=== PATIENT | female | born 1980 | race Caucasian/White ===

== ENCOUNTER 2016-05-03 09:58 | Emergency (ER) | payer SELFPAY ==
[2016-05-03 11:26] VITALS: BP 138/86
--- NOTE | 2016-05-03 11:44 | UC ---
Lower Extremity/Ankle HPI - HPI Summary HPI Summary: complaint of getting a piece of glass in her left foot this morning son broke liliam chair in the kitchen and she had it on her right heel brushed her foot against top of left foot and feels that glass lodged in her foot foot has been swollen and painful since hasn't taken medication for pain - History of Current Complaint Chief Complaint: UCLowerExtremity Stated Complaint: POSSIBLE GLASS IN FOOT Time Seen by Provider: 05/03/16 11:36 Hx Obtained From: Patient Hx Last Menstrual Period: 04/13/16 - Allergies/Home Medications Allergies/Adverse Reactions: Allergies Allergy/AdvReac Type Severity Reaction Status Date / Time Adhesive Tape [Plastic Tape] Allergy Intermediate Hives Verified 05/03/16 10:11 Home Medications: Home Medications Escitalopram Oxalate [Lexapro] 1 DAILY 05/03/16 [History] PMH/Surg Hx/FS Hx/Imm Hx Previously Healthy: Yes Endocrine History Of: Denies: Diabetes Cardiovascular History Of: Denies: Hypertension, Congestive Heart Failure Respiratory History Of: Reports: Asthma GI/ History Of: Denies: Renal Disease Neurological History Of: Reports: Migraine - Surgical History Surgical History: Yes Surgery Procedure, Year, and Place: CHOLECYSTECTOMY 2006. LEFT ANKLE. RT INDEX FINGER. TONSILS - Family History Known Family History: Negative: Cardiac Disease, Hypertension, Diabetes - Social History Occupation: Student Lives: With Family Alcohol Use: Occasionally Substance Use Type: None Smoking Status (MU): Never Smoked Tobacco Review of Systems Constitutional: Negative Skin: Other - laceration Eyes: Negative ENT: Negative Respiratory: Negative Cardiovascular: Negative Gastrointestinal: Negative Genitourinary: Negative Motor: Negative Neurovascular: Negative Musculoskeletal: Negative Neurological: Negative Psychological: Negative All Other Systems Reviewed And Are Negative: Yes Physical Exam Triage Information Reviewed: Yes Appearance: No Pain Distress, Well-Nourished Vital Signs: Initial Vital Signs Temp 99.0 F 05/03/16 10:06 Pulse 88 05/03/16 10:06 Resp 20 05/03/16 10:06 BP 138/86 05/03/16 10:06 Pulse Ox 100 05/03/16 10:06 Vital Signs Reviewed: Yes Eyes: Positive: Conjunctiva Clear ENT: Positive: Pharynx normal. Negative: Nasal congestion Neck: Positive: Supple Respiratory: Positive: Lungs clear, Normal breath sounds, No respiratory distress Cardiovascular: Positive: RRR, No Murmur, Pulses Normal Abdomen Description: Positive: Nontender, Soft Bowel Sounds: Positive: Present Musculoskeletal: Positive: No Edema Neurological: Positive: Alert Psychological Exam: Normal Skin: Positive: Other - left foot -dorsal side small 5mm laceration unable to remove glass with splinter forceps Procedures - Procedure Summary Procedure Summary: unable to remove glass with splinter forceps Lower Extremity Course/Dx - Course Course Of Treatment: exam completed. x-ray shows foreign object in left foot. pt refuses to have it removed in urgent care will refer to [facility] for further evaluation - Differential Dx/Diagnosis Differential Diagnosis/HQI/PQRI: Foreign Body Provider Diagnoses: foreign body in left foot Discharge - Discharge Plan Condition: Stable Disposition: HOME Patient Education Materials: Soft Tissue Foreign Body (ED) Referrals: Steve Kerr MD [Primary Care Provider] - Malick Link MD [Medical Doctor] - Additional Instructions: Take acetaminophen or ibuprofen for fever or pain Please review your discharge instructions. please call Dr Link for further evaluation and removal of foreign body
[2016-05-03] MEDS ORDERED: Ibuprofen TAB* 400 MG PO ONE (12:14)
--- NOTE | 2016-05-03 12:46 | RAD ---
Indication: Possible glass foreign body in the top of the LEFT foot. Comparison: July 26, 2005 Technique: AP and lateral views LEFT foot. Report: Moderately radiopaque 1.5 cm maximum dimension foreign body within the soft tissues of the dorsum of the forefoot at the level of the proximal space between the bases of the first and second metatarsals. Based on morphology taking the clinical history and overlying skin marker indicating the site of concern into account the foreign body is consistent with a shard of glass. No additional conspicuous foreign bodies. Negative for subcutaneous emphysema. Unremarkable articular alignment. Negative for fracture. Small Achilles tendon insertion heel spur. Soft tissue swelling over the dorsum of the forefoot. IMPRESSION: Retained foreign body subjacent to the dorsal skin marker indicating the site of clinical concern.
== END 2016-05-03 13:17 | disposition home or self-care (01) ==
LOC: UCEAST 09:58
DX: S90.852A Superficial foreign body, left foot, initial encounter (principal); W45.8XXA Other foreign body or object entering through skin, initial encounter; W25.XXXA Contact with sharp glass, initial encounter; Y93.89 Activity, other specified; Y92.9 Unspecified place or not applicable; Z90.49 Acquired absence of other specified parts of digestive tract
CPT/HCPCS: 99211; A9270-GY; G0463

== ENCOUNTER 2016-06-18 13:48 | Emergency (ER) | payer BC ==
--- NOTE | 2016-06-18 14:14 | ED ---
Head Injury - History Of Current Complaint Chief Complaint: EDHeadInjury Stated Complaint: HEAD PAIN Time Seen by Provider: 06/18/16 14:02 Hx Last Menstrual Period: 04/13/16 Pain Intensity: 8 - Allergies/Home Medications Allergies/Adverse Reactions: Allergies Allergy/AdvReac Type Severity Reaction Status Date / Time Adhesive Tape [Plastic Tape] Allergy Intermediate Hives Verified 05/03/16 10:11 PMH/Surg Hx/FS Hx/Imm Hx Endocrine/Hematology History: Denies: Hx Diabetes, Hx Systemic Lupus Erythematosus Cardiovascular History: Denies: Hx Congestive Heart Failure, Hx Hypertension Respiratory History: Reports: Hx Asthma GI History: Denies: Other GI Disorders - DENIES History: Reports: Other Problems/Disorders - POLYCYSTIC OVARIES Denies: Hx Dialysis, Hx Renal Disease Musculoskeletal History: Denies: Hx Rheumatoid Arthritis Neurological History: Reports: Hx Migraine - Cancer History Hx Chemotherapy: No - Surgical History Surgery Procedure, Year, and Place: CHOLECYSTECTOMY 2005. LEFT ANKLE. RT INDEX FINGER. TONSILS Infectious Disease History: Reports: Hx of Known/Suspected MRSA - leg and groin from a tanning bed Denies: Traveled Outside the [place] in Last 30 Days - Family History Known Family History: Negative: Cardiac Disease, Hypertension, Diabetes - Social History Alcohol Use: Occasionally Substance Use Type: Reports: None Smoking Status (MU): Never Smoked Tobacco Physical Exam Vital Signs On Initial Exam: Initial Vitals Temp Pulse Resp BP Pulse Ox 97.4 F 85 16 122/66 98 06/18/16 13:56 06/18/16 13:56 06/18/16 13:56 06/18/16 13:56 06/18/16 13:56 Diagnostics - Vital Signs Vital Signs Temp Pulse Resp BP Pulse Ox 06/18/16 13:56 97.4 F 85 16 122/66 98 - Laboratory Lab Statement: Any lab studies that have been ordered have been reviewed, and results considered in the medical decision making process. Head Injury Course/Dx - Diagnoses Differential Diagnosis/HQI/PQRI: Cerebral Contusion, Concussion Without LOC, Contusion, Hematoma, Other Provider Diagnoses: Concussion without loss of consciousness Discharge - Discharge Plan Condition: Stable Disposition: HOME Patient Education Materials: Concussion (ED), Post Concussion Syndrome (ED) Referrals: Steve Kerr MD [Primary Care Provider] - Additional Instructions: Take prescribed antiemetic as needed for nausea as needed. Take ibuprofen for headache as needed, as directed. Rest and drinking fluids is the best treatment for a concussion. Refrain from physical activity until cleared by primary care provider. Avoid high stimulating activities such as cellphones, computers and television. Take breaks during high concentration. If new symptoms develop or symptoms worsen please return to ED. Follow up with your primary care provider so this can be further evaluated.
[2016-06-18] MEDS ORDERED: Ketorolac INJ* 60 MG/2 ML VIAL IM ONE (15:04)
[2016-06-18] MEDS ORDERED: Ondansetron ODT TAB* 4 MG PO ONE (15:08)
--- NOTE | 2016-06-18 15:44 | RAD ---
HISTORY: Head trauma COMPARISONS: July 29, 2007 TECHNIQUE: Multiple contiguous axial CT scans were obtained of the head without intravenous contrast. FINDINGS: HEMORRHAGE/INFARCT: There is no hemorrhage or acute infarct. MASSES/SHIFT: There is no mass or shift. EXTRA-AXIAL SPACES: There are no extra-axial fluid collections. SULCI AND VENTRICLES: The sulci and ventricles are normal in size and position for the patient's stated age. CEREBRUM: There are no focal parenchymal abnormalities. BRAINSTEM: There are no focal parenchymal abnormalities. CEREBELLUM: There are no focal parenchymal abnormalities. VESSELS: The vessels are grossly normal. PARANASAL SINUSES: The paranasal sinuses are clear. ORBITS: The orbits are unremarkable. BONES AND SOFT TISSUE: No bone or soft tissue abnormalities are noted. OTHER: None IMPRESSION: NO ACUTE INTRACRANIAL PATHOLOGY.
[2016-06-18 16:29] VITALS: BP 136/71
== END 2016-06-18 16:28 | disposition home or self-care (01) ==
LOC: ED 13:48
DX: S06.0X0A Concussion without loss of consciousness, initial encounter (principal); X58.XXXA Exposure to other specified factors, initial encounter
CPT/HCPCS: 70450; 96374; 99282; J1885

== ENCOUNTER 2017-06-21 20:14 | Emergency (ER) | payer OTHER ==
--- NOTE | 2017-06-21 21:05 | RAD ---
Indication: Left foot pain. 3 views left foot demonstrates no fracture. No other bone or joint abnormality is noted. IMPRESSION: No fracture of the left foot is noted.
--- NOTE | 2017-06-21 21:14 | ED ---
Lower Extremity - HPI Summary HPI Summary: 36-year-old female presents with left foot pain for the past 4 days. She states she's been standing alot more at work. 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 She states that the pain is located to the lateral aspect of her midfoot. She states her pain is constant. Does not change with walking. Does not get better as she walks. She has been using ibuprofen without relief. No erythema. No history of gout. no numbness or tingling. No injury to the area. Pain is worse when the area is touched. - History of Current Complaint Hx Last Menstrual Period: 05/11/16, currently on menstrual cycle, (-) @ home preg 5 days ago Pain Intensity: 6 <Alie Marrufo - Last Filed: 06/21/17 21:56> <Reilly Sullivan - Last Filed: 06/22/17 00:32> - History of Current Complaint Chief Complaint: EDExtremityLower Stated Complaint: LT FOOT/LEG PAIN Time Seen by Provider: 06/21/17 20:33 - Allergies/Home Medications Allergies/Adverse Reactions: Allergies Allergy/AdvReac Type Severity Reaction Status Date / Time Adhesive Tape [Plastic Tape] Allergy Intermediate Hives Verified 05/03/16 10:11 egg Allergy Hives/Diff. Verified 06/21/17 20:19 Breathing/I tching PMH/Surg Hx/FS Hx/Imm Hx Endocrine/Hematology History: Denies: Hx Diabetes, Hx Systemic Lupus Erythematosus Cardiovascular History: Denies: Hx Congestive Heart Failure, Hx Hypertension, Hx Pacemaker/ICD Respiratory History: Reports: Hx Asthma GI History: Denies: Other GI Disorders - DENIES History: Reports: Other Problems/Disorders - POLYCYSTIC OVARIES Denies: Hx Dialysis, Hx Renal Disease Musculoskeletal History: Denies: Hx Rheumatoid Arthritis Sensory History: Denies: Hx Hearing Aid Neurological History: Reports: Hx Migraine Psychiatric History: Denies: Hx Panic Disorder - Cancer History Hx Chemotherapy: No - Surgical History Surgery Procedure, Year, and Place: CHOLECYSTECTOMY 2005. LEFT ANKLE SCRAPED BONE. RT INDEX FINGER METAL PLATE/PINS. TONSILS Infectious Disease History: No Infectious Disease History: Reports: Hx of Known/Suspected MRSA - leg and groin from a tanning bed Denies: Traveled Outside the [place] in Last 30 Days - Family History Known Family History: Negative: Cardiac Disease, Hypertension, Diabetes - Social History Alcohol Use: Occasionally Substance Use Type: Reports: None Smoking Status (MU): Never Smoked Tobacco <ClaudiamirzaAlie - Last Filed: 06/21/17 21:56> Review of Systems Negative: Fever Negative: Chest Pain Negative: Shortness Of Breath Positive: Myalgia - left foot pain All Other Systems Reviewed And Are Negative: Yes <ClaudiamirzaAlie - Last Filed: 06/21/17 21:56> Physical Exam Triage Information Reviewed: Yes Vital Signs On Initial Exam: Initial Vitals Temp Pulse Resp BP Pulse Ox 98.1 F 78 16 150/93 99 06/21/17 20:16 06/21/17 20:16 06/21/17 20:16 06/21/17 20:16 06/21/17 20:16 Vital Signs Reviewed: Yes Appearance: Positive: Well-Appearing Skin: Positive: Warm, Dry Head/Face: Positive: Normal Head/Face Inspection Eyes: Positive: Normal, Conjunctiva Clear Respiratory/Lung Sounds: Positive: Clear to Auscultation, Breath Sounds Present Cardiovascular: Positive: Normal, RRR Musculoskeletal: Positive: Limited @ - left foot, Edema Left - minimally edema, Other - tenderness over lateral midfoot, good pulses, sensation grossly intact, able to wiggle toes, no erythema Neurological: Positive: Normal <ClaudiamirzaAlie - Last Filed: 06/21/17 21:56> Vital Signs On Initial Exam: Initial Vitals Temp Pulse Resp BP Pulse Ox 98.1 F 78 16 150/93 99 06/21/17 20:16 06/21/17 20:16 06/21/17 20:16 06/21/17 20:16 06/21/17 20:16 <Reilly Sullivan - Last Filed: 06/22/17 00:32> Diagnostics - Vital Signs Vital Signs Temp Pulse Resp BP Pulse Ox 06/21/17 20:16 98.1 F 78 16 150/93 99 - Radiology foot Xray Interpretation: No Acute Changes Radiology Interpretation Completed By: Radiologist <Alie Marrufo - Last Filed: 06/21/17 21:56> - Vital Signs Vital Signs Temp Pulse Resp BP Pulse Ox 06/21/17 21:40 98 F 71 18 143/85 98 06/21/17 20:16 98.1 F 78 16 150/93 99 <Reilly Sullivan - Last Filed: 06/22/17 00:32> Lower Extremity Course/Dx - Course Course Of Treatment: 36-year-old female presents with left foot pain for the past 4 days. She states she's been standing alot more at work. 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 She states that the pain is located to the lateral aspect of her midfoot. She states her pain is constant. Does not change with walking. Does not get better as she walks. She has been using ibuprofen without relief. No erythema. No history of gout. no numbness or tingling. No injury to the area. Pain is worse when the area is touched. On exam tenderness over left lateral foot. Some edema present. Neurovascular intact. X-ray normal. in course of conversation patient states that she does not get along with me and is requesting another opinion. spoke with dr sullivan who saw patient. dr sullivan states pain seems mostly soft tissue. advised to treat with RICE. patient understand and agrees with plan. - Diagnoses Differential Diagnosis/HQI/PQRI: Positive: Fracture (Closed), Sprain, Strain <Alie Marrufo - Last Filed: 06/21/17 21:56> - Course Course Of Treatment: I supervised the care of the physician medical research assistant and I performed a history and physical on this patient. History: No definite trauma with complaint of discomfort in the lateral midfoot of the left ankle. Physical exam: Feet are extremely dirty. There is no significant swelling or redness in the area of discomfort. There is mild tenderness in the area of the anterior talofibular ligament. No ankle joint effusion. Plan: Rest, ice, compression and elevation as well as NSAID. Follow-up primary care physician. <Reilly Sullivan - Last Filed: 06/22/17 00:32> - Diagnoses Provider Diagnoses: Left foot pain Discharge - Sign-Out/Discharge Documenting (check all that apply): Discharge/Admit/Transfer - Billing Disposition and Condition Condition: GOOD Disposition: HOME <Alie Marrufo - Last Filed: 06/21/17 21:56> - Billing Disposition and Condition Condition: GOOD Disposition: HOME <Reilly Sullivan - Last Filed: 06/22/17 00:32> - Discharge Plan Condition: Good Disposition: HOME Patient Education Materials: R.I.C.E. Treatment (ED) Referrals: Steve Kerr MD [Primary Care Provider] - Additional Instructions: Follow up with primary Take ibuprofen every 6 hours for pain Wear supportive shoes or devorah wrap Apply ice, rest, elevate Return to ED if develop any new or worsening symptoms
[2017-06-21 21:41] VITALS: BP 143/85
== END 2017-06-21 21:40 | disposition home or self-care (01) ==
LOC: ED 20:14
DX: M79.672 Pain in left foot (principal); J45.909 Unspecified asthma, uncomplicated; E28.2 Polycystic ovarian syndrome; G43.909 Migraine, unspecified, not intractable, without status migrainosus; Z90.49 Acquired absence of other specified parts of digestive tract
CPT/HCPCS: 99282

== ENCOUNTER 2017-08-02 07:45 | Emergency (ER) | payer OTHER ==
[2017-08-02 08:31] LABS: ABS Basophils 0.1 10^3/ul (0-0.2); ABS Eosinophils 0.3 10^3/ul (0-0.6); ABS Lymphocytes 1.8 10^3/ul (1.0-4.8); ABS Monocytes 0.5 10^3/ul (0-0.8); ABS Neutrophils 7.1 10^3/ul (1.5-7.7); ABS Nucleated RBC 0 10^3/ul; Eosinophil % 2.8 % (0-6); Hematocrit 44 % (35-47); Hemoglobin 14.6 g/dl (12.0-16.0); Lymphocyte % 18.8 % (25-47); Mean Corpuscular HGB Conc 34 g/dl (31-36); Mean Corpuscular Hemoglobin 28 pg (27-31); Mean Corpuscular Volume 83 fL (80-97); Mean Platelet Volume 8.2 um3 (7.4-10.4); Nucleated Red Blood Cells % 0.1; Platelet Count 248 10^3/ul (150-450); Red Blood Count 5.22 10^6/ul (4.0-5.4); Red Cell Distribution Width 16 % (10.5-15); White Blood Count 9.7 10^3/ul (3.5-10.8)
[2017-08-02 08:37] LABS: Urine Appearance Clear; Urine Blood 1+ (Negative); Urine Color Yellow; Urine Ketones Negative (Negative); Urine Protein Negative (Negative); Urine Urobilinogen Negative (Negative)
[2017-08-02 08:59] LABS: EGFR Non-African American 67.4 (>60)
--- NOTE | 2017-08-02 10:04 | RAD ---
Indication: Bilateral pelvic pain. Comparison: June 28, 2017 Technique: Transabdominal and transvaginal technique pelvic ultrasound Report: 10.0 x 5.4 x 6.1 cm anteverted uterus is negative for myometrial lesions. 12.1 mm endometrium. 1.3 x 0.7 x 1.1 cm spindle-shaped hypoechoic lesion within the endometrial cavity without compelling intrinsic vascularity on Doppler. This lesion appears increased in size over the recent prior exam. Nabothian cysts at the cervix. Negative for free pelvic fluid. Unremarkable 4.1 x 1.7 x 2.5 cm RIGHT ovary and 3.2 x 2.3 x 2.4 cm LEFT ovary with vascular flow documented at both ovaries. No extra ovarian adnexal region lesions evident. IMPRESSION: 1.3 x 0.7 x 1.1 cm hyperechoic lesion within the endometrial cavity without intrinsic vascularity on Doppler. The differential primarily includes blood products and endometrial polyp.
[2017-08-02] MEDS ORDERED: Ketorolac INJ* 60 MG/2 ML VIAL IM ONE (11:34)
[2017-08-02] MEDS ORDERED: oxyCODONE/Acetamin 5/325 MG* TAB PO ONE (11:34)
[2017-08-02] MEDS ORDERED: Azithromycin TAB* 250 MG PO ONE (13:00)
[2017-08-02] MEDS ORDERED: cefTRIAXone VIAL(*) 250 MG VIAL IM ONE (13:00)
[2017-08-02 13:29] VITALS: BP 138/88
--- NOTE | 2017-08-03 07:23 | ED ---
Progress - Progress Note Progress Note: Patient's vaginal cultures revealed Gardnerella and elliot. She was seen and recently treated with ceftriaxone and Zithromax however these will not cover these infections. Spoke with patient who has had both of these dx before and is familiar with the diagnosis and treatment plans as well as prevention. She reports she had had intercourse with a partner that was "incompatible" which triggered this issue. She prefers Flagyl by mouth and requires Diflucan one pill for 2 consecutive weeks. Requests I send these rx's to [facility] in [place]. She is feeling okay and knows to follow up with PCP if symptoms persist however if danger signs or symptoms present she will return to the emergency department. Patient also aware of HIV results WHICH ARE NEG. Course/Dx - Diagnoses Provider Diagnoses: Pelvic pain Discharge - Sign-Out/Discharge Documenting (check all that apply): Post-Discharge Follow Up - Discharge Plan Condition: Stable Disposition: HOME Prescriptions: Naproxen TAB* [Naprosyn 250 mg TAB*] 500 mg PO Q8H PRN #30 tab PRN Reason: Pain - Moderate To Severe traMADol TAB* [Ultram*] 50 mg PO Q6HR PRN #8 tab MDD 4 PRN Reason: Pain - Moderate To Severe Patient Education Materials: Pelvic Pain in Women (ED) Referrals: Steve Kerr MD [Primary Care Provider] - 2 Days Hunter Gastelum MD [Medical Doctor] - 2 Days Additional Instructions: RETURN TO THE EMERGENCY DEPARTMENT FOR CHANGING OR WORSENING SYMPTOMS - Billing Disposition and Condition Condition: STABLE Disposition: Home
--- NOTE | 2017-08-05 08:39 | ED ---
Ozzie Ledbetter Stephanie, scribed for Amauri Stafford MD on 08/02/17 at 0849 . Abdominal Pain/Female - HPI Summary HPI Summary: The pt is a 37 y/o F BIBA to the ED with c/o lower abd pain that began a few weeks ago. The pt states she has had an US of her uterus to identify the source of the pain however, the US was inconclusive. Symptoms include dizziness, nausea , vomiting, vaginal discharge and back pain. Her pain has progressively worsened since onset. She has hx of vertigo and reports it has been worsening. Pain is aggravated by coughing. The pt reports she has a new sexual partner. LKMP: July 01, 2017. - History of Current Complaint Chief Complaint: EDAbdPain Stated Complaint: GENERAL Time Seen by Provider: 08/02/17 08:10 Hx Obtained From: Patient Hx Last Menstrual Period: 05/11/16, currently on menstrual cycle, (-) @ home preg 5 days ago ?: No Onset/Duration: Gradual Onset, Lasting Weeks, Still Present Severity Currently: Moderate Pain Intensity: 6 Pain Scale Used: 0-10 Numeric Location: Suprapubic Radiates: Yes Radiates to: Back Aggravating Factor(s): Other: - coughing Alleviating Factor(s): Nothing Associated Signs and Symptoms: Positive: Back Pain, Other: - dizziness Allergies/Adverse Reactions: Allergies Allergy/AdvReac Type Severity Reaction Status Date / Time Adhesive Tape [Plastic Tape] Allergy Intermediate Hives Verified 05/03/16 10:11 egg Allergy Hives/Diff. Verified 06/21/17 20:19 Breathing/I tching Home Medications: Home Medications Cholecalciferol TAB* [Vitamin D TAB*] 5,000 units PO DAILY 08/02/17 [History Confirmed 08/02/17] Escitalopram (NF) [Lexapro 10 mg (NF)] 10 mg PO DAILY 08/02/17 [History Confirmed 08/02/17] PMH/Surg Hx/FS Hx/Imm Hx Endocrine/Hematology History: Denies: Hx Diabetes, Hx Systemic Lupus Erythematosus Cardiovascular History: Denies: Hx Congestive Heart Failure, Hx Hypertension, Hx Pacemaker/ICD Respiratory History: Reports: Hx Asthma GI History: Denies: Other GI Disorders - DENIES History: Reports: Other Problems/Disorders - POLYCYSTIC OVARIES Denies: Hx Dialysis, Hx Renal Disease Musculoskeletal History: Denies: Hx Rheumatoid Arthritis Sensory History: Denies: Hx Hearing Aid Neurological History: Reports: Hx Migraine Psychiatric History: Denies: Hx Panic Disorder - Cancer History Cancer Type, Location and Year: 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 LEFT ANKLE SCRAPED BONE. RT INDEX FINGER METAL PLATE/PINS. TONSILS - Immunization History Immunizations Up to Date: Yes Infectious Disease History: No Infectious Disease History: Reports: Hx of Known/Suspected MRSA - leg and groin from a tanning bed Denies: Traveled Outside the [place] in Last 30 Days - Family History Known Family History: Negative: Cardiac Disease, Hypertension, Diabetes - Social History Occupation: Works From/At Home Lives: With Family Alcohol Use: Occasionally Hx Substance Use: Yes Substance Use Type: Reports: Marijuana Substance Use Comment - Amount & Last Used: daily with prescription Hx Tobacco Use: No Smoking Status (MU): Never Smoked Tobacco Have You Smoked in the Last Year: No Review of Systems Negative: Fever, Chills Negative: Erythema Negative: Sore Throat Negative: Chest Pain Negative: Shortness Of Breath, Cough Positive: Abdominal Pain, Vomiting, Nausea Positive: discharge. Negative: dysuria, hematuria Positive: Other - back pain. Negative: Myalgia, Edema Negative: Rash Neurological: Other - dizziness All Other Systems Reviewed And Are Negative: Yes Physical Exam - Summary Physical Exam Summary: Constitutional: Well-developed, Well-nourished, Alert. Mild pain distress Skin: Warm, Dry HENT: Normocephalic; Atraumatic Eyes: Conjunctiva normal Neck: Musculoskeletal ROM normal neck. (-) JVD, (-) Stridor, (-) Tracheal deviation Cardio: Rhythm regular, rate normal, Heart sounds normal; Intact distal pulses; The pedal pulses are 2+ and symmetric. Radial pulses are 2+ and symmetric. (-) Murmur Pulmonary/Chest wall: Effort normal. 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 Small amount of brownish discharge was present. There was no adnexal tenderness. Triage Information Reviewed: Yes Vital Signs On Initial Exam: Initial Vitals Temp Pulse Resp BP Pulse Ox 97.4 F 87 16 133/98 99 08/02/17 07:50 08/02/17 07:50 08/02/17 07:50 08/02/17 07:50 08/02/17 07:50 Vital Signs Reviewed: Yes Diagnostics - Vital Signs Vital Signs Temp Pulse Resp BP Pulse Ox 08/02/17 07:50 97.4 F 87 16 133/98 99 - Laboratory Lab Results: Lab Results 08/02/17 08/02/17 Range/Units 08:21 08:22 WBC 9.7 (3.5-10.8) 10^3/ul RBC 5.22 (4.0-5.4) 10^6/ul Hgb 14.6 (12.0-16.0) g/dl Hct 44 (35-47) % MCV 83 (80-97) fL MCH 28 (27-31) pg MCHC 34 (31-36) g/dl RDW 16 H (10.5-15) % Plt Count 248 (150-450) 10^3/ul MPV 8.2 (7.4-10.4) um3 Neut % (Auto) 73.0 (38-83) % Lymph % (Auto) 18.8 L (25-47) % Jones % (Auto) 4.7 (0-7) % Eos % (Auto) 2.8 (0-6) % Baso % (Auto) 0.7 (0-2) % Absolute Neuts (auto) 7.1 (1.5-7.7) 10^3/ul Absolute Lymphs (auto) 1.8 (1.0-4.8) 10^3/ul Absolute Monos (auto) 0.5 (0-0.8) 10^3/ul Absolute Eos (auto) 0.3 (0-0.6) 10^3/ul Absolute Basos (auto) 0.1 (0-0.2) 10^3/ul Absolute Nucleated RBC 0 10^3/ul Nucleated RBC % 0.1 Urine Color Yellow Urine Appearance Clear Urine pH 5.0 (5-9) Ur Specific [place] 1.020 (1.010-1.030) Urine Protein Negative (Negative) Urine Ketones Negative (Negative) Urine Blood 1+ A (Negative) Urine Nitrate Negative (Negative) Urine Bilirubin Negative (Negative) Urine Urobilinogen Negative (Negative) Ur Leukocyte Esterase Negative (Negative) Urine WBC (Auto) Trace(0-5/hpf) (Absent) Urine RBC (Auto) Trace(0-2/hpf) (Absent) Ur Squamous Epith Cells Present A (Absent) Urine Bacteria Absent (Absent) Urine Glucose Negative (Negative) Result Diagrams: 08/02/17 08:22 08/02/17 08:22 Lab Statement: Any lab studies that have been ordered have been reviewed, and results considered in the medical decision making process. - Additional Comments Diagnostic Additional Comments: Transvaginal US reveals: 1.3 x 0.7 x 1.1 cm hyperechoic lesion within the endometrial cavity without intrinsic vascularity on Doppler. The differential primarily includes blood products and endometrial polyp. ED physician has reviewed this report. 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 Small amount of brownish discharge was present. There was no adnexal tenderness. Abdominal Pain Fem Course/Dx - Course Course Of Treatment: Pain could represent chronic pelvic process such as endometriosis or polyp. Due to new sexual partner and vaginal discharge, ED physician will treat empirically while cultures are pending. - Diagnoses Provider Diagnoses: Pelvic pain Discharge - Sign-Out/Discharge Documenting (check all that apply): Discharge/Admit/Transfer - Discharge - Discharge Plan Condition: Stable Disposition: HOME Prescriptions: Naproxen TAB* [Naprosyn 250 mg TAB*] 500 mg PO Q8H PRN #30 tab PRN Reason: Pain - Moderate To Severe traMADol TAB* [Ultram*] 50 mg PO Q6HR PRN #8 tab MDD 4 PRN Reason: Pain - Moderate To Severe Patient Education Materials: Pelvic Pain in Women (ED) Referrals: Steve Kerr MD [Primary Care Provider] - 2 Days Hunter Gastelum MD [Medical Doctor] - 2 Days Additional Instructions: RETURN TO THE EMERGENCY DEPARTMENT FOR CHANGING OR WORSENING SYMPTOMS The documentation as recorded by the Ozzie gonzáles Stephanie accurately reflects the service I personally performed and the decisions made by , Amauri Stafford MD.
== END 2017-08-02 13:26 | disposition home or self-care (01) ==
LOC: ED 07:45
DX: R10.2 Pelvic and perineal pain (principal)
CPT/HCPCS: 36415; 76830; 80053; 81003; 81015; 83605; 83690; 84702; 85025; 86140; 86703; 87086; 87480; 87491; 87510; 87591; 87661; 96372; 99282; A9270-GY; J0696; J1885

== ENCOUNTER 2018-11-20 08:16 | Emergency (ER) | payer OTHER ==
[2018-11-20] MEDS ORDERED: Ketorolac *IM* INJ* 60 MG/2 ML VIAL IM ONE (09:05)
[2018-11-20 09:22] VITALS: BP 135/83
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
== END 2018-11-20 09:21 | disposition home or self-care (01) ==
LOC: ED 08:16
DX: S16.1XXA Strain of muscle, fascia and tendon at neck level, initial encounter (principal); V40.5XXA Car driver injured in collision with pedestrian or animal in traffic accident, initial encounter; Y92.410 Unspecified street and highway as the place of occurrence of the external cause; Z90.49 Acquired absence of other specified parts of digestive tract
CPT/HCPCS: 96372; 99282; J1885

== ENCOUNTER → 2019-02-09 14:22 | Emergency (ER) | payer OTHER ==
[2019-02-09 15:57] VITALS: BP 112/85
== END | disposition left against medical advice (07) ==
LOC: ED 14:22
DX: Z53.21 Procedure and treatment not carried out due to patient leaving prior to being seen by health care provider (principal); R10.31 Right lower quadrant pain
CPT/HCPCS: 99282

== ENCOUNTER 2019-04-16 09:21 | Day surgery (SDC) | payer OTHER ==
[~2019-04-16 09:21] MED LIST: Acetaminophen TAB* 325 MG PO PRN
[2019-04-16] MEDS ORDERED: Midazolam* 1 MG/ML 2 ML VIAL (2 MG) ONE ×2 (10:50→11:01)
[2019-04-16 11:33] VITALS: BP 148/81
--- NOTE | 2019-04-16 12:24 | OP ---
DATE OF OPERATION: 04/16/2019 - [facility] DATE OF : 1980. SURGEON: Ran Loya MD ANESTHESIA: Monitored anesthesia care. PREOPERATIVE DIAGNOSIS: Cataract, right eye. POSTOPERATIVE DIAGNOSIS: Cataract, right eye. OPERATIVE PROCEDURE: Extracapsular cataract extraction of the right eye with intraocular lens implant. IMPLANT: SN60WF 19.5 diopter lens to the right eye. COMPLICATIONS: None. DESCRIPTION OF PROCEDURE: The patient was given phenylephrine 2.5 % and cyclopentolate 1% eye drops to the operative eye in the preoperative area. The patient was taken to the operating room where a time-out was taken to identify the correct patient, site, and side of surgery. The patient's right eye was prepped and draped in the usual sterile fashion with 5% Betadine. A second time- out was taken to verify the correct patient, side, and site of surgery, as well as the correct lens implant. A lid speculum was placed to the right eye. A 1mm paracentesis blade was used to make a clear corneal incision. Preservative-free 1% lidocaine was injected into the anterior chamber. DisCoVisc was then injected into the anterior chamber. A 2.75 mm keratome blade was used to make a triplanar incision. A cystotome initiated a capsulorrhexis, which was completed with Utrata forceps in a continuous and curvilinear manner. Hydrodissection of the lens was performed with BSS on a cannula. The lens could be spun in a capsular bag. The phacoemulsification handpiece was used with a divide-and- conquer technique to remove the nucleus. The I/A handpiece then removed the residual cortical lens material. DisCoVisc was injected to inflate the capsular bag. The planned SN60WF 19.5 diopter lens was injected into the capsular bag. The residual DisCoVisc was removed from the eye with the I/A handpiece. The corneal incisions were hydrated and no leaks occurred at physiologic pressure around 20 mmHg per palpation. The lid speculum was removed and drapes were removed. Maxitrol ointment was placed to the surface of the operative eye. An adhesive patch and shield was then placed on the operative eye. The patient was taken to the postoperative area in stable condition. [id number]/[facility] #: [id number] [facility]
[2019-04-16] MEDS ORDERED: Ketorolac 0.5% OPHTH (NF) 0.5 % 5 ML BTL ONE (13:02)
[2019-04-16] MEDS ORDERED: Lidocaine 1% MPF ** 5 ML VIAL ONE (13:02)
[2019-04-16] MEDS ORDERED: Tetracaine 0.5% OPTH.SOL 4 ML* 1 DROP BTL ONE (13:02)
[2019-04-16] MEDS ORDERED: Phenylephrine OPHTH SOL 2.5%* 2 ML ONE (13:02)
[2019-04-16] MEDS ORDERED: Povidone Iodine 5% OPTH* 30 ML BTL ONE (13:02)
[2019-04-16] MEDS ORDERED: Tropicamide 1% OPTH.SOL* BTL ONE (13:02)
[2019-04-16] MEDS ORDERED: acetaZOLAMIDE TAB* 250 MG ONE (13:02)
[2019-04-16] MEDS ORDERED: Neomycin/Polymy/Dex OPHTH.OIN* 3.5 GM ONE (13:02)
[2019-04-16] MEDS ORDERED: Cyclopentolate 1% OPTH.SOL* 2 ML BTL ONE (13:02)
== END 2019-04-16 11:43 | disposition home or self-care (01) ==
LOC: OREAST 09:21
PROVIDERS: ATTEND Student in an Organized Health Care Education/Training Program
DX: H25.811 Combined forms of age-related cataract, right eye (principal); E28.2 Polycystic ovarian syndrome; E66.9 Obesity, unspecified; J45.909 Unspecified asthma, uncomplicated; F41.8 Other specified anxiety disorders
CPT/HCPCS: 81025; A9270-GY; J2250; V2632

== ENCOUNTER 2020-08-13 10:15 | Inpatient (IN) ==
[~2020-08-13 10:15] MED LIST changes: -Acetaminophen TAB* 325 MG PO PRN; +Buffered Lidocaine 1% SYRIN 1 ml INTRADERM ONE; +Lactated Ringers 1000 ml BAG 1,000 ML IV SCH
[2020-08-13] MEDS ORDERED: ceFAZolin 1 GM ADVAN 1 GM ADDV.VIAL IVPB ONE (12:42)
[2020-08-13] MEDS ORDERED: ceFAZolin 2 GM PREMIX 2 GM/50 ML BAG ONE (12:42)
[2020-08-13] MEDS ORDERED: Heparin 5000 UNITS/ML 1 mL VIAL ONE (12:42)
[2020-08-13] MEDS ORDERED: Bupivacaine 0.25% EPI 200,000 30 ML SDV ONE (13:23)
[2020-08-13] MEDS ORDERED: Midazolam 2 mg/2 ml VIAL 1 mg/ml 2 ml VIAL (2 mg) ONE (13:56)
[2020-08-13] MEDS ORDERED: Ketamine HCL 50 mg/ml 10 ml VIAL (500 MG) ONE (13:56)
[2020-08-13] MEDS ORDERED: fentaNYL 100 mcg/2 ml 50 MCG/ML VIAL ONE ×2 (13:56→15:53)
[2020-08-13] MEDS ORDERED: Propofol 10 MG/ML 20 ML BTL ONE (13:57)
[2020-08-13] MEDS ORDERED: Lidocaine 2% PF 5 ML VIAL ONE (13:57)
[2020-08-13] MEDS ORDERED: Rocuronium 50 mg VIAL 10 mg/ml 5 ml VIAL (50 mg) ONE (14:00)
[2020-08-13] MEDS ORDERED: Phenylephrine IV 10 MG/ML 1 ml VIAL ONE (15:10)
[2020-08-13] MEDS ORDERED: Acetaminophen IV 1 GM/100ML 100 ML ONE (15:16)
[2020-08-13] MEDS ORDERED: HYDROmorphone 0.5 MG/0.5 ML SYRINGE IV SLOW PU PRN ×2 (15:36→18:42)
[2020-08-13] MEDS ORDERED: Ondansetron 4 mg VIAL 2 MG/ML 2 ml VIAL IV PRN ×2 (15:36→15:43)
[2020-08-13] MEDS ORDERED: DiMENhydriNATE IV 50 mg/ml 1 ml VIAL IV PUSH PRN (15:43)
[2020-08-13] MEDS ORDERED: Naloxone 0.4 mg VIAL 0.4 mg/ml 1 ml VIAL IV PRN (15:43)
[2020-08-13] MEDS ORDERED: HYDROmorphone 1 MG/1 ML SYRINGE IV PRN (15:43)
[2020-08-13] MEDS ORDERED: Dexamethasone IV 4 MG/ML VIAL 1 ml VIAL ONE (15:44)
[2020-08-13] MEDS ORDERED: Ondansetron 4 mg VIAL 2 MG/ML 2 ml VIAL ONE ×2 (15:44→16:14)
[2020-08-13] MEDS: fentaNYL 100 mcg/2 ml 50 MCG/ML VIAL IV PRN ×4 (15:54→16:16)
[2020-08-13] MEDS ORDERED: DiMENhydriNATE IV 50 mg/ml 1 ml VIAL ONE (16:26)
[2020-08-13] MEDS: Lactated Ringers 1000 ml BAG 1,000 ML IV SCH (16:52)
[2020-08-13] MEDS: Albuterol/Ipratropium NEB.SOL (2.5/0.5 MG) 3 ML NEB.SOLN INH SCH ×2 (18:09→23:46)
[2020-08-13] MEDS ORDERED: Trimethobenzamide *IM* 100 mg/ml 2 ml VIAL (200 mg) IM PRN (18:41)
[2020-08-13] MEDS ORDERED: Prochlorperazine 5 mg/ml 2 ml VIAL (10 mg) IV PRN (18:42)
[2020-08-13] MEDS ORDERED: fentaNYL 100 mcg/2 ml 50 MCG/ML VIAL IV SLOW PU ONE (18:44)
[2020-08-13] MEDS ORDERED: Metoclopramide 5 MG/ML VIAL (10 mg) IV PRN (18:48)
[2020-08-13] MEDS: Ondansetron 4 mg VIAL 2 MG/ML 2 ml VIAL IV PRN (20:20)
[2020-08-14] MEDS: Lactated Ringers 1000 ml BAG 1,000 ML IV SCH ×2 (00:53→07:47)
[2020-08-14] MEDS: Albuterol/Ipratropium NEB.SOL (2.5/0.5 MG) 3 ML NEB.SOLN INH SCH ×2 (03:45→09:26)
[2020-08-14] MEDS: Ondansetron 4 mg VIAL 2 MG/ML 2 ml VIAL IV PRN ×4 (04:04→21:09)
[2020-08-14] MEDS: D5W 1/2 NS KCl 20 meq 1000 ml 1,000 ML IV SCH (15:30)
[2020-08-15] MEDS: D5W 1/2 NS KCl 20 meq 1000 ml 1,000 ML IV SCH (00:15)
[2020-08-15 08:04] VITALS: BP 109/51
[2020-08-16] MEDS ORDERED: Scopolamine PATCH Remove NOTE PATCH OFF ONE (16:00)
== END 2020-08-15 10:02 | disposition home or self-care (01) ==
LOC: AA 12:41 → SSU 17:26
PROVIDERS: ADMIT Surgery; ATTEND Surgery